=== PATIENT | male | born 1970 | race Caucasian/White ===

== ENCOUNTER 2018-04-15 07:55 | Emergency (ER) | payer MEDICAID, OTHER ==
[2018-04-15 08:06] VITALS: BP 134/79
--- NOTE | 2018-04-15 08:07 | UC ---
Throat Pain/Nasal Caleb HPI - HPI Summary HPI Summary: 47 yo male presents with sinus pain/pressure/congestion, post nasal drip, and dry cough for the last 3 weeks. He has been taking OTC mucinex, zyrtec, and a nasal spray - all which helped at first, but are no longer providing any relief. Denies fever, chills, sore throat, SOB, chest pain. - History of Current Complaint Chief Complaint: UCGeneralIllness Stated Complaint: SINUS CONGESTION Time Seen by Provider: 04/15/18 08:07 Hx Obtained From: Patient Onset/Duration: Gradual Onset Severity: Moderate Pain Intensity: 5 Pain Scale Used: 0-10 Numeric Cough: Nonproductive - Allergies/Home Medications Allergies/Adverse Reactions: Allergies Allergy/AdvReac Type Severity Reaction Status Date / Time No Known Allergies Allergy Verified 04/15/18 08:03 Home Medications: Home Medications Ibuprofen TAB* [Advil TAB*] 400 mg PO ONCE PRN 04/15/18 [History Confirmed 04/15] Meloxicam 1 - 2 tab PO DAILY PRN 04/15/18 [History Confirmed 04/15/18] PMH/Surg Hx/FS Hx/Imm Hx - Additional Past Medical History Additional PMH: None - Surgical History Surgical History: Yes Surgery Procedure, Year, and Place: Right hernia repair - Family History Known Family History: Positive: None - Social History Occupation: Employed Full-time Lives: With Family Alcohol Use: None Substance Use Type: None Smoking Status (MU): Never Smoked Tobacco - Immunization History Most Recent Tetanus Shot: 2009 Review of Systems Constitutional: Negative Skin: Negative Eyes: Negative ENT: Nasal Discharge, Sinus Congestion, Sinus Pain/Tenderness Respiratory: Cough Cardiovascular: Negative Gastrointestinal: Negative Neurovascular: Negative Neurological: Negative Psychological: Negative All Other Systems Reviewed And Are Negative: Yes Physical Exam - Summary Physical Exam Summary: GENERAL: NAD. WDWN. No pain distress. SKIN: No rashes, sores, lesions, or open wounds. HEENT: Head: AT/NC Eyes: EOM intact. Conjunctiva clear without inflammation or discharge. Ears: Hearing grossly normal. TMs intact, no bulging, erythema, or edema. Nose: Nasal mucosa mildly swollen with yellow/clear discharge. TTP maxillary and frontal sinus. Throat: Posterior oropharynx without exudates, erythema, or tonsillar enlargement. Uvula midline. NECK: Supple. Nontender. No lymphadenopathy. CHEST: CTAB. No r/r/w. No accessory muscle use. Breathing comfortably and in no distress. CV: RRR. Without m/r/g. Pulses intact. NEURO: Alert. PSYCH: Age appropriate behavior. Triage Information Reviewed: Yes Vital Signs: Initial Vital Signs Temp 98 F 04/15/18 08:00 Pulse 75 04/15/18 08:00 Resp 14 04/15/18 08:00 BP 134/79 04/15/18 08:00 Pulse Ox 100 04/15/18 08:00 Vital Signs Reviewed: Yes Throat Pain/Nasal Course/Dx - Course Course Of Treatment: Sinusitis - Differential Dx/Diagnosis Provider Diagnoses: Sinusitis Discharge - Sign-Out/Discharge Documenting (check all that apply): Patient Departure All imaging exams completed and their final reports reviewed: No Studies - Discharge Plan Condition: Stable Disposition: HOME Prescriptions: Amoxicillin/Clavulanate TAB* [Augmentin TAB 875*] 875 mg PO BID #20 tab Patient Education Materials: Sinusitis (ED) Referrals: Milton Laguerre MD [Primary Care Provider] - Additional Instructions: If you develop a fever, shortness of breath, chest pain, new or worsening symptoms - please call your PCP or go to the ED. Your blood pressure was mildly elevated at todays visit. Please see your primary provider within 4 weeks for recheck and re-evaluation. - Billing Disposition and Condition Condition: STABLE Disposition: Home
== END 2018-04-15 08:16 | disposition home or self-care (01) ==
LOC: UCEAST 07:55
DX: J32.9 Chronic sinusitis, unspecified (principal)
CPT/HCPCS: 99212; G0463

== ENCOUNTER 2019-01-31 07:27 | Emergency (ER) | payer BC, OTHER ==
[2019-01-31 07:39] VITALS: BP 120/68
--- NOTE | 2019-01-31 07:42 | UC ---
Back Pain HPI - HPI Summary HPI Summary: Pt presents to with progressive back pain for several years. Pt has never had surgery- has had injections, ablation. 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 Pt reports after work went to chiropractor and had adjustments - lumbar area. Pt states when he got home significant increase in pain. Pt states had 2 episodes where legs "gave out" and fell. Pt states additionally 2 episodes where he striuggle to get to bathroom to urinate -states felt he couldn't normally control urine. Pt with paresthesia bilatearl legs, left > r Pt took 800mg motrin last night 600mg this am medications reviewed - History of Current Complaint Chief Complaint: UCBackPain Stated Complaint: LOWER BACK PAIN Hx Obtained From: Patient Onset/Duration: Sudden Onset Timing: Constant Severity Initially: Severe Severity Currently: Severe Pain Intensity: 10 Pain Scale Used: 0-10 Numeric Back Pain: Is Discrete @ - lumbar area Aggravating Factor(s): Movement, Lifting, Bending, Walking, Cough Alleviating Factor(s): OTC Meds - mild improvement with motrin - Allergies/Home Medications Allergies/Adverse Reactions: Allergies Allergy/AdvReac Type Severity Reaction Status Date / Time No Known Allergies Allergy Verified 01/31/19 07:39 PMH/Surg Hx/FS Hx/Imm Hx Previously Healthy: Yes - chronic back pain - Surgical History Surgical History: Yes Surgery Procedure, Year, and Place: Right hernia repair - Family History Known Family History: Positive: Non-Contributory - Social History Occupation: Employed Full-time Lives: With Family Alcohol Use: None Substance Use Type: None Smoking Status (MU): Never Smoked Tobacco - Immunization History Most Recent Tetanus Shot: 2009 Review of Systems All Other Systems Reviewed And Are Negative: Yes Constitutional: Positive: Negative Skin: Positive: Negative Eyes: Positive: Negative ENT: Positive: Negative Respiratory: Positive: Negative Cardiovascular: Positive: Negative Gastrointestinal: Positive: Negative Genitourinary: Positive: Negative Motor: Positive: Other - back pain Neurological: Positive: Weakness, Paresthesia, Other - decreased bladder control Is Patient Immunocompromised?: No Physical Exam - Summary Physical Exam Summary: Vital Signs Reviewed: Yes A+Ox3, obvious discomfort with movement, walking, position change Eyes: Conjunctiva Clear ENT: Hearing grossly normal mmoist, Neck: Positive: Supple Respiratory: Positive: No respiratory distress, No accessory muscle use + CTA throughout no w/r Cardiovascular: RRR nl s1, s2 no m/r CBT <2 sec 2+ PT b/l abd soft + BS nt/nd no guarding, no distension Musculoskeletal Exam: No spinous process pain c/t/l/s + TTP paraspinal mid lumbar L>R Pain with direct palp + SLE b/l with increased discomfort contral lat low back L>R + flex/ext knee, ankle 4+/5 strength LLE SLE, extension knee Neurological: Positive: Alert, + grossly decreased sensation medial aspect left LE from midthigh to calf + great toe extension 2+ patellar b/l no clonus Psychological: Positive: Normal Response To medical engineer Skin: Positive: no rash, no ecchymosis Triage Information Reviewed: Yes Vital Signs: Initial Vital Signs Temp 97.7 F 01/31/19 07:33 Pulse 66 01/31/19 07:33 Resp 18 01/31/19 07:33 BP 120/68 01/31/19 07:33 Pulse Ox 98 01/31/19 07:33 Back Pain Course/Dx - Course Course Of Treatment: Mirta Alvarez | Reference #: [id number] Pt with h/o chronic back - exacerbated after lifting and bedning at work yesterday. Pt had a chiropractic manipulation and pain increased Pt with 2 falls after as legs "gave out" Pt states also felt had difficult bladder control last night motrin last night and again this morning pt states left legt feels weak VSS pt with slight decreases strength on left Pt with patchy decreased sensation left Concern given increased pain after manipulation and near incontinence last night recommend pt to ED for further eval - pt in agreement - mother drove him declined narcotic Will give flexeril, APAP spoke with DHRUV Mari in ED - Differential Dx/Diagnosis Provider Diagnosis: Lumbar radiculopathy, acute Discharge - Sign-Out/Discharge Documenting (check all that apply): Patient Departure All imaging exams completed and their final reports reviewed: No Studies - Discharge Plan Condition: Stable Disposition: HOME Patient Education Materials: Acute Low Back Pain (ED), Lumbar Radiculopathy (ED ) Referrals: No Primary Care Phys,NOPCP [Primary Care Provider] - Additional Instructions: The doctor that evaluated you today thinks that you need additional testing that can be completed the emergency department. It is recommended that you go directly to emergency department for further evaluation. This evaluation may include blood work or imaging. This testing will be directed and decided by the provider that evaluate you at the emergency department. If pain becomes worse, you feel lightheaded, you have uncontrolled vomiting, or you have any other concerns while you are being driven to emergency department as recommended to pullover and contact 911. - Billing Disposition and Condition Condition: STABLE Disposition: Home
[2019-01-31] MEDS ORDERED: Acetaminophen TAB* 325 MG PO ONE (07:50)
[2019-01-31] MEDS ORDERED: Cyclobenzaprine TAB* 10 MG PO ONE (07:51)
== END 2019-01-31 08:04 | disposition home or self-care (01) ==
LOC: UCEAST 07:27
DX: M54.16 Radiculopathy, lumbar region (principal)
CPT/HCPCS: 99212; G0463

== ENCOUNTER → 2019-01-31 08:25 | Emergency (ER) | payer BC ==
[~2019-01-31 08:25] MED LIST: Dexamethasone IV* 4 MG/ML 1 ML (4 MG) IV SLOW PU ONE; METHOCARBAMOL IVPB ONE; Methocarbamol* 100 MG/ML 10 ML VIAL IV ONE; NS 0.9% 1000 ML** 1,000 ML IV ONE; NS 0.9% IVPB ONE; oxyCODONE/Acetamin 5/325 MG* TAB PO ONE
[2019-01-31 08:55] LABS: ABS Eosinophils 0.2 10^3/ul (0-0.6); ABS Lymphocytes 1.8 10^3/ul (1.0-4.8); ABS Monocytes 0.6 10^3/ul (0-0.8); ABS Neutrophils 3.7 10^3/ul (1.5-7.7); Eosinophil % 2.6 %; Hematocrit 47 % (42-52); Hemoglobin 16.1 g/dL (14.0-18.0); Lymphocyte % 29.4 %; Mean Corpuscular HGB Conc 34 g/dL (31-36); Mean Corpuscular Hemoglobin 30 pg (27-31); Mean Corpuscular Volume 88 fL (80-94); Mean Platelet Volume 7.1 fL (7.4-10.4); Platelet Count 164 10^3/uL (150-450); Red Blood Count 5.37 10^6 /uL (4.18-5.48); Red Cell Distribution Width 13 % (10-15); White Blood Count 6.2 10^3/uL (3.5-10.8)
--- NOTE | 2019-01-31 08:55 | ED ---
Back Pain - HPI Summary HPI Summary: 48-year-old male presents with back pain for the past couple days. He states that he was lifting trees and was bending and twisting. States he saw the chiropractor and had an adjustment done last night. He states that his pain got worst since. He had 2 episodes of incontinence where he barely made into the bathroom he was just luckily it was close. Denies any issues with stool. Pain does radiate into abdomen. Does admit to some tingling into hips. States that his left leg he has been giving out which is new. He admits to left leg weakness which is new. He has had numbness and tingling in the left leg before. denies any fevers. No history IV drug use. Took some ibuprofen without relief. States pain is constant. - History of Current Complaint Chief Complaint: EDBackInjuryPain Stated Complaint: LOWER BACK PAIN PER PT Time Seen by Provider: 01/31/19 08:30 Pain Intensity: 9 - Allergies/Home Medications Allergies/Adverse Reactions: Allergies Allergy/AdvReac Type Severity Reaction Status Date / Time No Known Allergies Allergy Verified 01/31/19 07:39 PMH/Surg Hx/FS Hx/Imm Hx Endocrine/Hematology History: Denies: Hx Diabetes, Hx Thyroid Disease Cardiovascular History: Denies: Hx Hypertension, Hx Pacemaker/ICD Respiratory History: Denies: Hx Asthma, Hx Chronic Obstructive Pulmonary Disease (COPD) GI History: Denies: Hx Ulcer History: Denies: Hx Renal Disease Sensory History: Denies: Hx Hearing Aid Psychiatric History: Denies: Hx Panic Disorder - Surgical History Surgery Procedure, Year, and Place: Right hernia repair Infectious Disease History: No Infectious Disease History: Denies: Hx Hepatitis, Hx Human Immunodeficiency Virus (HIV), History Other Infectious Disease, Traveled Outside the [place] in Last 30 Days - Family History Known Family History: Positive: None, Non-Contributory - Social History Alcohol Use: None Substance Use Type: Reports: None Smoking Status (MU): Never Smoked Tobacco Review of Systems Negative: Fever Negative: Chest Pain Negative: Shortness Of Breath Positive: Myalgia - back pain Neurological: Other - left leg weakness All Other Systems Reviewed And Are Negative: Yes Physical Exam Triage Information Reviewed: Yes Vital Signs On Initial Exam: Initial Vitals Temp Pulse Resp BP Pulse Ox 97.3 F 54 18 129/79 100 01/31/19 08:25 07/18/19 08:25 01/31/19 08:25 01/31/19 08:25 01/31/19 08:25 Vital Signs Reviewed: Yes Appearance: Positive: Well-Appearing Skin: Positive: Warm, Dry Head/Face: Positive: Normal Head/Face Inspection Eyes: Positive: Normal, Conjunctiva Clear ENT: Positive: Pharynx normal Respiratory/Lung Sounds: Positive: Clear to Auscultation, Breath Sounds Present Cardiovascular: Positive: Normal, RRR Abdomen Description: Positive: Nontender, Soft Bowel Sounds: Positive: Present Musculoskeletal: Positive: Limited @ - back, Other - pos SLR left, tenderness lower back, good pulses, dec sensation gross right leg Neurological: Positive: Babinski Bilateral - normal Psychiatric: Positive: Normal Diagnostics - Vital Signs Vital Signs Temp Pulse Resp BP Pulse Ox 01/31/19 08:25 97.3 F 54 18 129/79 100 - Laboratory Result Diagrams: 01/31/19 08:44 01/31/19 08:44 Lab Statement: Any lab studies that have been ordered have been reviewed, and results considered in the medical decision making process. - Additional Comments Diagnostic Additional Comments: MRI IMPRESSION: 1. Varying degrees of multilevel spondylosis results in only mild spinal canal stenosis with narrowing of the lateral recesses at L2-L3. Neural foraminal stenosis is mild on the right L4-L5. 2. An annular fissure at L4-L5 is a potential source of focal back pain. Re-Evaluation - Re-Evaluation First Eval Re-Evaluation Time: 10:57 Change: Improved Comment: pain better Back Pain Course/Dx - Course Course Of Treatment: 48-year-old male presents with back pain for the past couple days. He states that he was lifting trees and was bending and twisting. States he saw the chiropractor and had an adjustment done last night. He states that his pain got worst since. He had 2 episodes of incontinence where he barely made into the bathroom he was just luckily it was close. Denies any issues with stool. Pain does radiate into abdomen. Does admit to some tingling into hips. States that his left leg he has been giving out which is new. He admits to left leg weakness which is new. He has had numbness and tingling in the left leg before. denies any fevers. No history IV drug use. Took some ibuprofen without relief. States pain is constant. On exam tenderness lower back. Positive straight leg raise breath. Normal Babinskis. With new onset of weakness and incontinence get MRI. wbc normal. crp normal. MRI shows annular fissure which patient states knows about. feels better and meds. discussed that will add on pain meds for short term, muscle relaxer and steriods. told to follow up with neurosurgery. patient understand and agrees with plan. - Diagnoses Differential Diagnosis/HQI/PQRI: Positive: Cauda Equina Syndrome, Compressive Cord Syndrome, Herniated Disc Provider Diagnoses: Back pain Discharge - Sign-Out/Discharge Documenting (check all that apply): Patient Departure Patient Received Moderate/Deep Sedation with Procedure: No - Discharge Plan Condition: Good Disposition: HOME Prescriptions: Cyclobenzaprine TAB* [Flexeril 10 MG TAB*] 10 mg PO TID PRN #21 tab PRN Reason: Pain HYDROcodone/ACETAMIN 5-325 MG* [[place] 5-325 TAB*] 1 tab PO Q6H PRN #16 tab MDD 4 PRN Reason: Pain methylPREDNISolone [Medrol Dosepak 4 MG*] 4 mg PO .SEE FLOYD INSTRUCTION #1 packet Patient Education Materials: Back Pain (ED) Referrals: [facility] [Outside] Tavo Ureña MD [Medical Doctor] - Additional Instructions: Follow directions on package for Medrol pack Take muscle relaxers three times a day Use ibuprofen or Tylenol for pain every 6 hours, use norco for pain every 6 hours as needed ice/heat area, move as much as possible follow up with primary and neurosurgery Return to ED if develop any new or worsening symptoms - Billing Disposition and Condition Condition: GOOD Disposition: Home
[2019-01-31 09:14] LABS: ALT 19 U/L (7-52); AST 17 U/L (13-39); Albumin 4.6 g/dL (3.2-5.2); Albumin/Globulin Ratio 2.1 (1-3); Alkaline Phosphatase 56 U/L (34-104); Anion Gap 6 mmol/L (2-11); BUN/Creatinine Ratio 22.6 (8-20); Blood Urea Nitrogen 21 mg/dL (6-24); C Reactive Protein < 1.00 mg/L (<8.01); CO2 Carbon Dioxide 28 mmol/L (22-32); Calcium 9.9 mg/dL (8.6-10.3); Chloride 105 mmol/L (101-111); EGFR African American 105.4 (>60); EGFR Non-African American 87.1 (>60); Globulin 2.2 g/dL (2-4); Glucose 81 mg/dL (70-100); Potassium 4.5 mmol/L (3.5-5.0); Sodium 139 mmol/L (135-145); Total Protein 6.8 g/dL (6.4-8.9)
[2019-01-31 10:59] LABS: Urine Appearance Clear; Urine Bilirubin Negative (Negative); Urine Blood Negative (Negative); Urine Color Straw; Urine Glucose Negative (Negative); Urine Ketones Negative (Negative); Urine Nitrite Negative (Negative); Urine Protein Negative (Negative); Urine Specific Gravity 1.008 (1.010-1.030); Urine Urobilinogen Negative (Negative)
[2019-01-31 11:22] VITALS: BP 123/78
== END | disposition home or self-care (01) ==
LOC: ED 08:25
DX: M54.9 Dorsalgia, unspecified (principal); M48.8X6 Other specified spondylopathies, lumbar region
CPT/HCPCS: 36415; 72148; 80053; 81003; 85025; 86140; 96365; 96375; 99282; A9270-GY; J2800

== ENCOUNTER 2019-04-11 14:55 | Emergency (ER) | payer BC ==
[2019-04-11 15:18] VITALS: BP 129/87
[2019-04-11] MEDS ORDERED: Sulfamethox/Trimethoprim DS 800/160* TAB PO ONE (15:30)
--- NOTE | 2019-04-11 15:36 | UC ---
Skin Complaint HPI - HPI Summary HPI Summary: Patient is a 48yo male presenting with infection of right index finger x2 days. 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 States he did not put his hand into anything but he did handle tools. Notes increasing redness, warmth, stiffness, and pain to the affected fingertip. States he came in today because he began to "feel weird. " Is unsure of fever but notes chills. Denies n/v/d. Notes decreased ROM. Denies numbness and tingling. Denies drainage. - History of Current Complaint Chief Complaint: UCSkin Stated Complaint: INFECTED FINGER Pain Intensity: 7 - Allergy/Home Medications Allergies/Adverse Reactions: Allergies Allergy/AdvReac Type Severity Reaction Status Date / Time No Known Allergies Allergy Verified 04/11/19 15:19 PMH/Surg Hx/FS Hx/Imm Hx Previously Healthy: Yes - Surgical History Surgical History: Yes Surgery Procedure, Year, and Place: Right hernia repair - Family History Known Family History: Positive: None, Non-Contributory - Social History Alcohol Use: Rare Substance Use Type: None Smoking Status (MU): Never Smoked Tobacco - Immunization History Most Recent Tetanus Shot: 2009 Review of Systems All Other Systems Reviewed And Are Negative: Yes Constitutional: Positive: Chills. Negative: Fever Skin: Positive: Other - redness and swelling of right index finger Eyes: Positive: Negative ENT: Positive: Negative Respiratory: Positive: Negative. Negative: Shortness Of Breath, Cough Cardiovascular: Positive: Negative. Negative: Palpitations, Chest Pain Gastrointestinal: Positive: Negative. Negative: Abdominal Pain, Vomiting, Diarrhea, Nausea Neurovascular: Positive: Negative Musculoskeletal: Positive: Arthralgia, Decreased ROM, Edema Neurological: Positive: Negative. Negative: Paresthesia, Numbness Psychological: Positive: Negative Physical Exam Triage Information Reviewed: Yes Appearance: Well-Appearing, No Pain Distress, Well-Nourished Vital Signs: Initial Vital Signs Temp 99.4 F 04/11/19 15:15 Pulse 68 04/11/19 15:15 Resp 16 04/11/19 15:15 BP 129/87 04/11/19 15:15 Pulse Ox 99 04/11/19 15:15 Vital Signs Reviewed: Yes Eyes: Positive: Conjunctiva Clear ENT: Positive: Hearing grossly normal Neck: Positive: Supple Respiratory: Positive: No respiratory distress Cardiovascular: Positive: RRR, Pulses Normal, Brisk Capillary Refill. Negative : Tachycardia Musculoskeletal: Positive: Strength Intact, ROM Limited @ - flexion of distal phalanx of right index finger, Edema @ - distal phalanx of right index finger Neurological: Positive: Alert, Muscle Tone Normal. Negative: Lethargic Psychological: Positive: Age Appropriate Behavior Skin: Positive: Other - erythema and edema of distal phalanx of right index finger noted. no drainage noted. no fluctuance noted. tenderness to palpation of distal phalanx. Course/Dx - Course Course Of Treatment: Instructed patient to take Bactrim as prescribed for the treatment of cellulitis. I told him to keep the area clean and dry and that he may take ibuprofen and/or tylenol as directed for pain and fever relief. He was instructed to follow up with the [facility] or Physician Referral as listed below if symptoms persist. Instructed to go to the ED if he experiences fever, increasing redness and warmth to the area, drainage from the area, or nausea and vomiting. Patient voiced understanding and agreed to the treatment plan. - Diagnoses Provider Diagnosis: Cellulitis of right index finger Discharge ED - Sign-Out/Discharge Documenting (check all that apply): Patient Departure All imaging exams completed and their final reports reviewed: No Studies - Discharge Plan Condition: Stable Disposition: HOME Prescriptions: Sulfamethox/Trimethoprim DS* [Bactrim DS 800/160 TAB*] 1 tab PO BID #19 tab Patient Education Materials: Cellulitis (ED) Referrals: [facility] [Outside] - If Needed Additional Instructions: As discussed, take Bactrim as prescribed for the treatment of your skin infection. You received the first dose of Bactrim here. You may take ibuprofen and tylenol as directed for pain and fever relief. Keep the area clean and dry. Wear gloves while you are working. Go to the emergency room if you experience fever, increasing redness and warmth to the area, drainage, inability to move your finger, or nausea and vomiting. - Billing Disposition and Condition Condition: STABLE Disposition: Home
== END 2019-04-11 15:40 | disposition home or self-care (01) ==
LOC: UCEAST 14:55
DX: L03.011 Cellulitis of right finger (principal)
CPT/HCPCS: 99212; A9270-GY; G0463

== ENCOUNTER 2019-08-02 08:15 | Emergency (ER) | payer BC ==
[2019-08-02 08:21] VITALS: BP 131/85
[2019-08-02 08:49] LABS: Influenza A Molecular POSITIVE (Negative)
--- NOTE | 2019-08-02 09:00 | UC ---
FLU HPI - HPI Summary HPI Summary: 49 yo with cough, congestion and sore throat for 3 days. Fever and chills last night. Works at [employer]. - History of Current Complaint Chief Complaint: UCGeneralIllness Stated Complaint: COUGH, SORE THROAT Time Seen by Provider: 08/02/19 08:38 Hx Obtained From: Patient Onset/Duration: Sudden Onset, Lasting Days - 2 Severity Currently: Mild Severity Initially: Moderate Pain Intensity: 5 Associated Signs & Symptoms: Positive: Fever, Myalgia, Cough, Sore Throat, Headache - Risk Factors Influenza Risk Factors: Negative - Allergy/Home Medications Allergies/Adverse Reactions: Allergies Allergy/AdvReac Type Severity Reaction Status Date / Time No Known Allergies Allergy Verified 08/02/19 08:22 PMH/Surg Hx/FS Hx/Imm Hx Previously Healthy: Yes - Surgical History Surgical History: Yes Surgery Procedure, Year, and Place: Right hernia repair - Family History Known Family History: Positive: None, Non-Contributory - Social History Occupation: Employed Full-time Lives: Alone Alcohol Use: Rare Substance Use Type: None Smoking Status (MU): Never Smoked Tobacco - Immunization History Most Recent Tetanus Shot: 2009 Review of Systems All Other Systems Reviewed And Are Negative: Yes Constitutional: Positive: Fever, Fatigue Skin: Positive: Negative Eyes: Positive: Negative ENT: Positive: Sore Throat, Nasal Discharge, Sinus Congestion Respiratory: Positive: Cough Cardiovascular: Negative: Palpitations, Chest Pain Gastrointestinal: Positive: Negative Genitourinary: Positive: Negative Motor: Positive: Negative Neurovascular: Positive: Negative Musculoskeletal: Positive: Arthralgia, Myalgia Neurological: Positive: Headache Is Patient Immunocompromised?: No Physical Exam Triage Information Reviewed: Yes Appearance: Ill-Appearing - looks mildly unwell Vital Signs: Initial Vital Signs Temp 97.9 F 08/02/19 08:19 Pulse 78 08/02/19 08:19 Resp 18 08/02/19 08:19 BP 131/85 08/02/19 08:19 Pulse Ox 100 08/02/19 08:19 Eyes: Positive: Conjunctiva Clear ENT: Positive: Pharyngeal erythema, TMs normal Respiratory: Positive: Lungs clear, Normal breath sounds Cardiovascular: Positive: RRR, No Murmur Musculoskeletal Exam: Normal Neurological Exam: Normal Psychological Exam: Normal Skin Exam: Normal Diagnostics - Laboratory Lab Results: Strep A positive Flu Course/Dx - Course Course Of Treatment: Discussed pros and cons of olsetamavir and he would like to try use of it. Symptomatic treatment. - Differential Dx/Diagnosis Differential Diagnosis/HQI/PQRI: Influenza, Pneumonia Provider Diagnosis: Influenza A Discharge ED - Sign-Out/Discharge Documenting (check all that apply): Patient Departure All imaging exams completed and their final reports reviewed: No Studies - Discharge Plan Condition: Stable Disposition: HOME Prescriptions: Oseltamivir CAP* [Tamiflu CAP*] 75 mg PO BID #10 cap Patient Education Materials: Influenza (ED) Forms: *Work Release Referrals: No Primary Care Phys,NOPCP [Primary Care Provider] - Additional Instructions: Take olsetamavir to decrease the symptoms of flu being aware that side effects are headache and nausea. Use ibuprfofen 600mg every 6 hours as needed for headache and body aches. Emsure a high intake of fluids. Follow up if you develop increased shortness of breath or chest pain. - Billing Disposition and Condition Condition: STABLE Disposition: Home
== END 2019-08-02 09:21 | disposition home or self-care (01) ==
LOC: UCEAST 08:15
DX: J10.1 Influenza due to other identified influenza virus with other respiratory manifestations (principal)
CPT/HCPCS: 99212; G0463